=== PATIENT | male | born 1990 | race African-American/Black ===

== ENCOUNTER 2022-05-12 08:45 | Emergency (ER) | payer OTHER ==
[~2022-05-12] VITALS: Ht 165.1 cm; Wt 65.9 kg
[2022-05-12 09:30] VITALS: BP 134/90
[2022-05-12] MEDS ORDERED: CEPHALEXIN500 MG PO (10:45)
[2022-05-12 11:11] VITALS: BP 134/90
== END 2022-05-12 11:11 | disposition home or self-care (01) | DRG 605 ==
LOC: ED 08:45
PROC: 0HQ0XZZ Repair Scalp Skin, External Approach (ICD-10-PCS; principal; 2022-05-12)
PROC: 0HQ6XZZ Repair Back Skin, External Approach (ICD-10-PCS; 2022-05-12)
DX: S01.01XA Laceration without foreign body of scalp, initial encounter (principal); S41.012A Laceration without foreign body of left shoulder, initial encounter; S41.011A Laceration without foreign body of right shoulder, initial encounter; X99.1XXA Assault by knife, initial encounter; Y92.149 Unspecified place in prison as the place of occurrence of the external cause